=== PATIENT | male | born 1945 | race Caucasian/White ===

== ENCOUNTER → 2019-03-21 | Outpatient (CLI) | payer MEDICARE, OTHER ==
[~2019-03-21] MED LIST: ALLO100 PO; AMLO10 PO; ASPI325 PO; CINNAMON; CLOP75 PO; Cinnamon500 MG PO; FURO40 PO; GABA300 PO; GLIM4 PO; INSULANI SUBQ; INSULANPEN SC; K-Dur20 MEQ PO; LISHYD1012 PO; LISI20 PO; MELO7.5 PO; META800 PO; METF500 PO; METO2.5 PO; METO50ER PO; METPRE4DP PO; OXYC5 PO; PIOG30 PO; POTCHL20ER PO; SAW PALMETTO; SENN187 PO; SIMV10 PO; Saw Palmetto160 MG PO; TORSE20 PO; WARF4 PO; Zantac150 MG PO
[2019-03-21 19:23] LABS: Campylobacter Sp Not Detected (NOT DETECT)
[2019-03-21 19:24] LABS: Adenovirus F 40/41 Not Detected (NOT DETECT); Astrovirus Not Detected (NOT DETECT); Cryptosporidium Not Detected (NOT DETECT); Cyclospora Cayetanensis Not Detected (NOT DETECT); E. Coli O157 Not Detected (NOT DETECT); Entamoeba Histolytica Not Detected (NOT DETECT); Enteroaggregative E. coli-EAEC Not Detected (NOT DETECT); Enteropathogenic E. coli-EPEC Not Detected (NOT DETECT); Enterotoxigenic E. coli-ETEC Not Detected (NOT DETECT); Giardia Lamblia Not Detected (NOT DETECT); Norovirus GI/GII Not Detected (NOT DETECT); Plesiomonas Shigelloides Not Detected (NOT DETECT); Rotavirus A Not Detected (NOT DETECT); Salmonella Sp Not Detected (NOT DETECT); Sapovirus Not Detected (NOT DETECT); Shiga Toxin-prod E. coli-STEC Not Detected (NOT DETECT); Shigella/Enteroin E. coli-EIEC Not Detected (NOT DETECT); Vibrio Cholerae Not Detected (NOT DETECT); Vibrio Sp Not Detected (NOT DETECT); Yersinia Enterocolitica Not Detected (NOT DETECT)
== END | disposition home or self-care (01) ==
LOC: LAB SHORT 16:43 → LAB 16:43
PROVIDERS: Nurse Practitioner Family
DX: A06.1 Chronic intestinal amebiasis (principal)
CPT/HCPCS: 0097U

== ENCOUNTER 2022-10-17 18:43 | Inpatient (IN) | payer MEDICARE ==
[~2022-10-17] VITALS: Ht 177.8 cm; Wt 120.1 kg
[~2022-10-17 18:43] MED LIST changes: +Norco 5-325 Ta1 EACH PO
[2022-10-17 19:31] LABS: BASOPHILS ABSOLUTE AUTO 0.04 K/mm3 (0.00-0.23); BASOPHILS PERCENT AUTO 0 % (0-2); EOSINOPHILS ABSOLUTE AUTO 0.01 K/mm3 (0.00-0.68); EOSINOPHILS PERCENT AUTO 0 % (0-6); Hematocrit 37.3 % (37.0-53.0); IMMATURE GRAN ABSOLUTE AUTO 0.16 K/mm3 (0.00-0.10); IMMATURE GRAN PERCENT AUTO 1 % (0-1); LYMPHOCYTES ABSOLUTE AUTO 0.34 K/mm3 (0.84-5.20); LYMPHOCYTES PERCENT AUTO 2 % (21-46); MONOCYTES ABSOLUTE AUTO 0.76 K/mm3 (0.16-1.47); MONOCYTES PERCENT AUTO 5 % (4-13); Mean Corpuscular HGB 27.4 pg (26.0-34.0); Mean Corpuscular HGB Conc 32.2 g/dL (31.5-36.5); Mean Corpuscular Volume 85 fL (80-100); NEUTROPHILS ABSOLUTE AUTO 12.65 K/mm3 (1.96-9.15); NEUTROPHILS PERCENT AUTO 91 % (41-73); RDW Coefficient Variation 14.1 % (11.7-14.2); RDW Standard Deviation 43.8 fL (35.1-46.3); Red Blood Cell Count 4.38 M/mm3 (4.30-5.90); White Blood Cell Count 13.96 K/mm3 (4.00-11.30)
[2022-10-17 19:39] LABS: Albumin, Blood 2.4 g/dL (3.4-5.0); Albumin/Globulin Ratio 0.5 (0.8-1.8); Bilirubin, Total 0.6 mg/dL (0.1-1.0); Bun/Creatinine Ratio 16.1 (12.0-20.0); Calcium, Blood 8.7 mg/dL (8.5-10.1); Globulin, Blood 4.5 g/dL (2.2-4.0); Potassium, Blood 4.5 mmol/L (3.5-5.5); Total Protein, Blood 6.9 g/dL (6.4-8.2)
[2022-10-17 19:53] LABS: Mean Platelet Volume 10.9 fL (9.1-12.4); Platelet Count 317 K/mm3 (150-400)
[2022-10-17 23:15] LABS: Magnesium, Blood 1.5 mg/dL (1.6-2.4)
[2022-10-17 23:16] LABS: Thyroid Stimulating Hormone 1.87 uIU/mL (0.360-4.800)
--- NOTE | 2022-10-18 06:20 | NUR ---
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 XFERED TO BED W/BEDSHEET. A/OX4 WITH SOME FORGETFULNESS/DIFFICULT RECALL. PT UNABLE TO TELL ME WHAT HOME MEDS HE TAKES. CRITICAL LACTIC ACID OF 3.2; NOTIFICATION F/PHARMACY; ENVIRONMENTAL SCIENCES PROFESSOR/DR FERRIS NOTIFIED. ADMIT F/PNEUMONIA; PT HAD BEEN EXPERIENCING WEAKNESS AND MULTIPLE RECENT FALLS. PT REPORTS HE IS UNABLE TO FEEL OR MOVE HIS LEGS; HE IS CURRENTLY NON AMBULATORY BUT STATES HE NORMALLY USES A FWW TO AMBULATE; REFLEX NOT OBSERVED. PT COMP OF PAIN IN HIS BACK AND STOMACH MUSCLES. PT WAS TO HAVE A CT SCAN OF SPINE PRIOR TO MED FLOOR ADMIT--CT SCAN NOT DONE DUE TO PT INCREASED LEVELS OF PAIN AND INABILITY TO LAY FLAT. CALL TO ENVIRONMENTAL SCIENCES PROFESSOR/DR FERRIS TO NOTIFY ABOUT CT SCAN; NEW ORDER FOR 25-50MCG [facility] Q4HRS. CT SCAN STILL PENDING. PT CURRENTLY ON 2L OF 02 TO MAINTAIN SATS ABOVE 90%. PT ON ROOM AIR AT HOME. LEFT AC IV; IV FLUIDS/LR RUNNING AT 100MLS HR. PT ORIENTED TO ROOM AND CALL LIGHT. CALL LIGHT ACCESSIBLE.
[2022-10-18 06:56] LABS: Influenza A, PCR Negative (NEGATIVE); Influenza B, PCR Negative (NEGATIVE); Resp Syncytial Virus, PCR Negative (NEGATIVE); SARS-Cov-2 (COVID-19) PCR, MMC Negative (NEGATIVE)
[2022-10-18 08:49] LABS: Hemoglobin 10.2 g/dL (13.5-17.5); Mean Corpuscular HGB 27.6 pg (26.0-34.0); Mean Corpuscular HGB Conc 31.9 g/dL (31.5-36.5); Mean Corpuscular Volume 87 fL (80-100); Mean Platelet Volume 10.5 fL (9.1-12.4); Platelet Count 266 K/mm3 (150-400); RDW Coefficient Variation 14.2 % (11.7-14.2); RDW Standard Deviation 45.4 fL (35.1-46.3); Red Blood Cell Count 3.69 M/mm3 (4.30-5.90); White Blood Cell Count 9.89 K/mm3 (4.00-11.30)
[2022-10-18 09:01] LABS: Bun/Creatinine Ratio 18.4 (12.0-20.0); Creatinine, Blood 1.14 mg/dL (0.60-1.20); Potassium, Blood 4.4 mmol/L (3.5-5.5)
--- NOTE | 2022-10-18 18:15 | NUR ---
SHIFT SUMMARY- PT IS A/O, PLESANT AND COOPERATIVE. HE IS EATING AND DRINKING WELL. HE IS UNABLE TO MOVE HIS LOWER EXTREMITIES AND HAS NO FEELING BELOW HIS WAIST. HE WENT FOR [address] SHIFT[address] PURCELL WORKING ON TRANSFERING PT TO [place] FOR NEUROSURGRY. HE IS A LIFT PT. HIS BED IS IN THE LOW POSITION AND CALL LIGHT IS WITIN REACH. BLOOD PRESSURE WAS SOFT THIS EVENING AND REPLACMENT FLUIDS WERE ORDERED. HIS BED IS IN THE LOW POSITON AND CALL LIGHT IS WITHIN REACH. FAMILY IS AT BEDSIDE.
--- NOTE | 2022-10-18 23:03 | NUR ---
PT TRANSFER TO [facility] ICU/REPORT GIVEN TO MAYURI GARY R.N. ADVISED ON PT CURRENT ILLNESS, ORIENTATION, 2L O2 NC, LOSS OF FEELING IN LEGS, CT SCAN RESULTS, PRESSURE WOUND, URINE RETENTION, AM STRAIGHT CATH W/450ML OUTPUT. PT BLADDER SCANNED BEFORE TRANSPORT; 108MLS RESIDUAL-- NO CATH PLACED. ADVISED ON LACTIC ACID LABS, IV ACCESS, AND PT FAMILY/CONTACT NUMBERS. MULTIPLE ATTEMPTS TO NOTIFY FAMILY UNSUCCESSFUL. PT SON AT BEDSIDE BEGINNING OF SHIFT; PER PT, SON TOOK HOME ALL PERSONAL BELONGINGS. TRANSPORT ARRIVED AT 2230; PT XFERED W/LIFT. NOTIFIED TRANSPORT OF PAIN MEDS GIVEN AND PT MEDICAL CONDITION. GAVE PAPERWORK TO PARAMEDICS. IV FLUIDS/NS 125MLS HR TAKEN WITH PT. ADVISED PT AGAIN ABOUT WHERE HE WAS GOING AND UPDATED THAT I HAD NOT REACHED HIS FAMILY. ADVISED FAMILY CONTACT INFO WOULD BE GIVEN TO [facility]. PT LEFT AT 2245. CONTACT TO [facility]/MAYURI GARY TO NOTIFY PT DEPARTURE TIME.
== END 2022-10-18 22:47 | disposition short-term general hospital (02) | DRG 871 ==
LOC: ER 18:43 → MEDS 23:00
PROVIDERS: Internal Medicine; Student in an Organized Health Care Education/Training Program; ADMIT Internal Medicine
DX: A41.9 Sepsis, unspecified organism (principal); J18.9 Pneumonia, unspecified organism; J96.01 Acute respiratory failure with hypoxia; I47.1 Supraventricular tachycardia; C79.51 Secondary malignant neoplasm of bone; C79.89 Secondary malignant neoplasm of other specified sites; C34.91 Malignant neoplasm of unspecified part of right bronchus or lung; M84.58XA Pathological fracture in neoplastic disease, other specified site, initial encounter for fracture; E87.20 Acidosis, unspecified; E87.1 Hypo-osmolality and hyponatremia; I10 Essential (primary) hypertension; E11.9 Type 2 diabetes mellitus without complications; M54.9 Dorsalgia, unspecified; G89.29 Other chronic pain; R94.31 Abnormal electrocardiogram [ECG] [EKG]; R29.6 Repeated falls; R63.4 Abnormal weight loss; H54.7 Unspecified visual loss; E78.5 Hyperlipidemia, unspecified; M19.90 Unspecified osteoarthritis, unspecified site; N40.1 Benign prostatic hyperplasia with lower urinary tract symptoms; R33.8 Other retention of urine; M48.04 Spinal stenosis, thoracic region; I95.9 Hypotension, unspecified; E66.01 Morbid (severe) obesity due to excess calories; F51.04 Psychophysiologic insomnia; M89.58 Osteolysis, other site; G83.89 Other specified paralytic syndromes; M10.9 Gout, unspecified; F17.220 Nicotine dependence, chewing tobacco, uncomplicated; Z20.822 Contact with and (suspected) exposure to COVID-19; Z96.653 Presence of artificial knee joint, bilateral; Z23 Encounter for immunization; Z79.899 Other long term (current) drug therapy; Z79.811 Long term (current) use of aromatase inhibitors; Z79.891 Long term (current) use of opiate analgesic; Z79.01 Long term (current) use of anticoagulants; Z79.84 Long term (current) use of oral hypoglycemic drugs; Z90.49 Acquired absence of other specified parts of digestive tract; Z98.890 Other specified postprocedural states; Z68.38 Body mass index [BMI] 38.0-38.9, adult; Z85.820 Personal history of malignant melanoma of skin; Z98.1 Arthrodesis status
CPT/HCPCS: 0241U; 36415; 71046; 71260; 72131; 74177; 80048; 80053; 82947; 83605; 83735; 83880; 84145; 84443; 84484; 85025; 85027; 87040; 90686; 93005; 93010; 96365; 96375; 97110; 97163; 99285-25; A9270; C1751; G0008; J0696; J1650; J3010; J7030; J7120; Q9967